=== PATIENT | male | born 1985 | race Caucasian/White ===

== ENCOUNTER → 2020-08-05 15:39 | Outpatient (CLI) | payer OTHER, SELFPAY ==
[2020-08-05] MEDS: COVID-19 VACC #1, MRNA(MOD) 100 MCG/0.5 ML VIAL IM (15:46)
== END ==
PROVIDERS: Visit Provider Internal Medicine
DX: Z23 Encounter for immunization (principal)
CPT/HCPCS: 0011A; 91301

== ENCOUNTER → 2020-09-02 15:39 | Outpatient (CLI) | payer OTHER, SELFPAY ==
[2020-09-02] MEDS: COVID-19 VACC #2, MRNA(MOD) 100 MCG/0.5 ML VIAL IM (15:42)
== END ==
PROVIDERS: Visit Provider Internal Medicine
DX: Z23 Encounter for immunization (principal)
CPT/HCPCS: 0012A; 91301

== ENCOUNTER → 2021-12-20 10:47 | Outpatient (CLI) | payer OTHER, SELFPAY ==
[2021-12-20 12:29] LABS: Semen Sperm Prescence Post-Vas Absent (ABSENT)
== END ==
PROVIDERS: Referring Provider Urology; Visit Provider Urology
DX: Z30.09 Encounter for other general counseling and advice on contraception (principal)
CPT/HCPCS: 89321